=== PATIENT | male | born 1930 | race Caucasian/White ===

== ENCOUNTER 2018-02-21 18:44 | Inpatient (IN) | payer MEDICARE, OTHER ==
[~2018-02-21] VITALS: Ht 177.8 cm; Wt 53.9 kg
[2018-02-21 19:00] VITALS: BP 152/88
[2018-02-21] MEDS ORDERED: heparin 25,000 UNIT/250ml bag 250 ML IV SCH (19:06)
[2018-02-21] MEDS ORDERED: acetaminophen 325mg tablet PO PRN ×2 (19:10)
[2018-02-21] MEDS ORDERED: potassium Cl 40MEQ/NS 500ml 500 ML IV PRN ×2 (19:10)
[2018-02-21] MEDS ORDERED: potassium Cl 20 mEq SR tablet PO PRN (19:10)
[2018-02-21] MEDS ORDERED: morphine 2 MG/ML inj. syringe IV PRN (19:10)
[2018-02-21] MEDS ORDERED: morphine 4 MG/ML inj SYRINge IV PRN (19:10)
[2018-02-21] MEDS ORDERED: heparin 10,000 units/1 ML INJ IV PRN (19:10)
[2018-02-21 20:00] VITALS: BP 145/72
[2018-02-21 20:01] LABS: BASOPHILS # (AUTO) 0.1 X10'3 (0-0.2); BASOPHILS % (AUTO) 0.6 % (0-1); EOSINOPHILS # (AUTO) 0.2 X10'3 (0-0.9); EOSINOPHILS % (AUTO) 1.8 % (0-6); HEMATOCRIT 39.1 % (42.0-52.0); HEMOGLOBIN 12.9 g/dl (14.0-17.9); LYMPHOCYTES # (AUTO) 4.1 X10'3 (1.1-4.8); LYMPHOCYTES % (AUTO) 36.8 % (21-51); MEAN CORPUSCULAR HEMOGLOBIN 30.1 PG (27.0-31.0); MEAN CORPUSCULAR HGB CONC 33.1 % (33.0-36.5); MEAN CORPUSCULAR VOLUME 90.9 FL (78-98); MEAN PLATELET VOLUME 8.2 FL (7.4-10.4); MONOCYTES # (AUTO) 0.8 X10'3 (0-0.9); MONOCYTES % (AUTO) 7.2 % (2-12); NEUTROPHILS % (AUTO) 53.6 % (42-75); PLATELET COUNT 314 X10'3 (140-440); RED CELL DISTRIBUTION WIDTH 14.8 % (11.5-14.5); WHITE BLOOD COUNT 11.3 X10'3 (4.5-11.0)
[2018-02-21] MEDS: normal saline 1000ml 1,000 ML IV SCH (20:01)
[2018-02-21 21:00] VITALS: BP 96/55
[2018-02-21 21:05] LABS: ALANINE AMINOTRANSFERASE 16 U/L (12-78); ALBUMIN 3.4 G/DL (3.4-5.0); ALBUMIN/GLOBULIN RATIO 0.9 (1.1-1.5); ALKALINE PHOSPHATASE 103 IU/L (46-116); ANION GAP 13 (8-16); ASPARTATE AMINO TRANSFERASE 22 U/L (10-37); BILIRUBIN,TOTAL 0.7 MG/DL (0.1-1.0); BLOOD UREA NITROGEN 16 MG/DL (7-18); BUN/CREATININE RATIO 15.5 (5.4-32.0); CALCIUM 9.5 MG/DL (8.5-10.1); CHLORIDE 100 MMOL/L (99-107); CREATININE 1.03 MG/DL (0.60-1.10); GLUCOSE 102 MG/DL (70-104); POTASSIUM 3.6 MMOL/L (3.5-5.1); SODIUM 139 MMOL/L (135-145); TOTAL CARBON DIOXIDE 26.4 MMOL/L (24-32); TOTAL PROTEIN 7.3 G/DL (6.4-8.2); eGFR 68 ML/MIN
[2018-02-21] MEDS: docusate sod 100mg capsule PO SCH (21:15)
[2018-02-21] MEDS: famotidine 20mg tablet PO SCH (21:15)
[2018-02-21 22:00] VITALS: BP 119/54
[2018-02-21] MEDS: HYDROcodone/acetaminophen 5mg/325mg tablet PO PRN (23:25)
[2018-02-21] MEDS: ondansetron/PF 4mg/2ml inj IV PRN (23:25)
[2018-02-22] VITALS (25 sets, daily range): BP systolic 97–177; BP diastolic 58–100
[2018-02-22 00:43] LABS: CLARITY,URINE CLEAR (Clear); COLOR,URINE YELLOW (Yellow); GLUCOSE, URINE NEGATIVE (Neg); KETONES,URINE NEGATIVE (Neg); LEUKOCYTE ESTERASE ,URINE NEGATIVE (Neg); NITRITES, URINE NEGATIVE (Neg); OCCULT BLOOD,URINE NEGATIVE (Neg); PH,URINE 6.5 (4.8-8.0); PROTEIN,URINE NEGATIVE (Neg); UROBILINOGEN,URINE 0.2 E.U/dL (0.2-1.0)
[2018-02-22 00:48] LABS: UA COLLECTION TYPE URINAL
[2018-02-22 02:54] LABS: BASOPHILS # (AUTO) 0.1 X10'3 (0-0.2); BASOPHILS % (AUTO) 0.6 % (0-1); EOSINOPHILS # (AUTO) 0.1 X10'3 (0-0.9); EOSINOPHILS % (AUTO) 1.4 % (0-6); HEMATOCRIT 36.4 % (42.0-52.0); HEMOGLOBIN 11.9 g/dl (14.0-17.9); LYMPHOCYTES % (AUTO) 38.2 % (21-51); MEAN CORPUSCULAR HEMOGLOBIN 29.9 PG (27.0-31.0); MEAN CORPUSCULAR HGB CONC 32.7 % (33.0-36.5); MEAN CORPUSCULAR VOLUME 91.3 FL (78-98); MEAN PLATELET VOLUME 8.2 FL (7.4-10.4); MONOCYTES # (AUTO) 0.9 X10'3 (0-0.9); MONOCYTES % (AUTO) 8.3 % (2-12); NEUTROPHILS # (AUTO) 5.4 X10'3 (1.8-7.7); NEUTROPHILS % (AUTO) 51.5 % (42-75); PLATELET COUNT 310 X10'3 (140-440); RED BLOOD COUNT 3.99 X10'6 (4.70-6.10); RED CELL DISTRIBUTION WIDTH 15.1 % (11.5-14.5); WHITE BLOOD COUNT 10.6 X10'3 (4.5-11.0)
[2018-02-22 03:05] LABS: ALANINE AMINOTRANSFERASE 16 U/L (12-78); ALBUMIN 3.1 G/DL (3.4-5.0); ALBUMIN/GLOBULIN RATIO 0.9 (1.1-1.5); ALKALINE PHOSPHATASE 86 IU/L (46-116); ANION GAP 9 (8-16); ASPARTATE AMINO TRANSFERASE 21 U/L (10-37); BILIRUBIN,TOTAL 0.6 MG/DL (0.1-1.0); BLOOD UREA NITROGEN 13 MG/DL (7-18); BUN/CREATININE RATIO 12.9 (5.4-32.0); CALCIUM 9.1 MG/DL (8.5-10.1); CHLORIDE 104 MMOL/L (99-107); CREATININE 1.01 MG/DL (0.60-1.10); GLUCOSE 110 MG/DL (70-104); MAGNESIUM 1.8 MG/DL (1.5-2.4); PHOSPHORUS 2.9 MG/DL (2.3-4.5); POTASSIUM 3.7 MMOL/L (3.5-5.1); SODIUM 141 MMOL/L (135-145); TOTAL CARBON DIOXIDE 28.2 MMOL/L (24-32); TOTAL PROTEIN 6.4 G/DL (6.4-8.2); eGFR 70 ML/MIN
[2018-02-22] MEDS: HYDROcodone/acetaminophen 5mg/325mg tablet PO PRN (04:28)
[2018-02-22] MEDS: famotidine 20mg tablet PO SCH ×2 (08:00→20:14)
[2018-02-22] MEDS: docusate sod 100mg capsule PO SCH ×2 (08:00→20:14)
[2018-02-22] MEDS: normal saline 1000ml 1,000 ML IV SCH ×2 (08:23→22:12)
[2018-02-22] MEDS ORDERED: heparin 1,000 UNITS/NS 500ml 500 ML ONE ×2 (10:05→11:36)
[2018-02-22] MEDS ORDERED: heparin 1,000 UNITS/NS 500ml 500 ML ICATH ONE (10:05)
[2018-02-22] MEDS ORDERED: LIDOcaine 1%/PF 5ML 10 MG/ML VIAL ONE ×2 (10:05→12:50)
[2018-02-22] MEDS ORDERED: LIDOcaine 1%/PF 5ML 10 MG/ML VIAL SQ ONE (10:05)
[2018-02-22] MEDS ORDERED: midazolam 2 mg/2 ml injection ONE (10:05)
[2018-02-22] MEDS ORDERED: fentaNYL/PF 50MCG/1 ML 2ML syringe IV PRN (10:05)
[2018-02-22] MEDS ORDERED: iohexol 300mg/ml 100ml inj. ONE (10:05)
[2018-02-22] MEDS ORDERED: midazolam 2 mg/2 ml injection IV PRN (10:05)
[2018-02-22] MEDS ORDERED: fentaNYL/PF 50MCG/1 ML 2ML syringe ONE (10:06)
[2018-02-22] MEDS ORDERED: ondansetron/PF 4mg/2ml inj ONE (11:12)
[2018-02-22] MEDS ORDERED: tPA-cathflo 2mg/2ml IV flush 4 MG in normal saline 100ml IV soln 100 ML ICATH SCH (11:25)
[2018-02-22] MEDS ORDERED: DILT120T3 PO (12:04)
[2018-02-22] MEDS ORDERED: METO50TA16 PO (12:04)
[2018-02-22] MEDS ORDERED: ATOR-2 PO (12:04)
[2018-02-22] MEDS ORDERED: LYR75C PO (12:04)
[2018-02-22] MEDS ORDERED: CHLO50TA PO (12:04)
[2018-02-22] MEDS ORDERED: CILO100T PO (12:04)
[2018-02-22] MEDS ORDERED: CLOP75TA35 PO (12:04)
[2018-02-22] MEDS ORDERED: HYDROmorphone 1 mg/ml syringe ONE ×2 (13:46→17:20)
[2018-02-22] MEDS: HYDROmorphone inj. 0.5 MG/0.5 ML DISP.SYRIN IV PRN ×4 (14:00→23:06)
[2018-02-22 17:40] LABS: HEMATOCRIT 38.5 % (42.0-52.0); HEMOGLOBIN 12.6 g/dl (14.0-17.9); MEAN CORPUSCULAR HEMOGLOBIN 29.8 PG (27.0-31.0); MEAN CORPUSCULAR HGB CONC 32.6 % (33.0-36.5); MEAN CORPUSCULAR VOLUME 91.3 FL (78-98); PLATELET COUNT 305 X10'3 (140-440); RED BLOOD COUNT 4.22 X10'6 (4.70-6.10); RED CELL DISTRIBUTION WIDTH 15.3 % (11.5-14.5); WHITE BLOOD COUNT 9.8 X10'3 (4.5-11.0)
[2018-02-22] MEDS: heparin 1,000 UNITS/NS 500ml 500 ML IV SCH ×2 (19:40→22:14)
[2018-02-22] MEDS: diltiazem SR 60mg capsule (twice daily) PO SCH (20:13)
[2018-02-22] MEDS: atorvastatin 20mg tablet PO SCH (20:13)
[2018-02-22] MEDS: metoprolol tartrate 50mg tablet PO SCH (20:14)
[2018-02-22] MEDS ORDERED: diltiazem 5mg/ml 5ml inj. IV ONE (20:25)
[2018-02-22 23:53] LABS: HEMATOCRIT 34.7 % (42.0-52.0); HEMOGLOBIN 11.5 g/dl (14.0-17.9); MEAN CORPUSCULAR HGB CONC 33.1 % (33.0-36.5); MEAN CORPUSCULAR VOLUME 90.8 FL (78-98); MEAN PLATELET VOLUME 8.1 FL (7.4-10.4); PLATELET COUNT 294 X10'3 (140-440); RED BLOOD COUNT 3.82 X10'6 (4.70-6.10); RED CELL DISTRIBUTION WIDTH 15.6 % (11.5-14.5); WHITE BLOOD COUNT 9.1 X10'3 (4.5-11.0)
[2018-02-23] VITALS (23 sets, daily range): BP systolic 110–177; BP diastolic 55–109
[2018-02-23] MEDS: HYDROmorphone inj. 0.5 MG/0.5 ML DISP.SYRIN IV PRN ×6 (01:33→22:09)
[2018-02-23 06:03] LABS: BASOPHILS # (AUTO) 0.1 X10'3 (0-0.2); BASOPHILS % (AUTO) 0.6 % (0-1); EOSINOPHILS # (AUTO) 0.2 X10'3 (0-0.9); EOSINOPHILS % (AUTO) 1.7 % (0-6); HEMATOCRIT 34.3 % (42.0-52.0); HEMOGLOBIN 11.1 g/dl (14.0-17.9); LYMPHOCYTES # (AUTO) 3.4 X10'3 (1.1-4.8); LYMPHOCYTES % (AUTO) 37.7 % (21-51); MEAN CORPUSCULAR HEMOGLOBIN 29.7 PG (27.0-31.0); MEAN CORPUSCULAR HGB CONC 32.5 % (33.0-36.5); MEAN CORPUSCULAR VOLUME 91.4 FL (78-98); MEAN PLATELET VOLUME 8.1 FL (7.4-10.4); MONOCYTES # (AUTO) 0.7 X10'3 (0-0.9); MONOCYTES % (AUTO) 8.3 % (2-12); NEUTROPHILS # (AUTO) 4.6 X10'3 (1.8-7.7); NEUTROPHILS % (AUTO) 51.7 % (42-75); PLATELET COUNT 288 X10'3 (140-440); RED BLOOD COUNT 3.75 X10'6 (4.70-6.10); RED CELL DISTRIBUTION WIDTH 15.1 % (11.5-14.5); WHITE BLOOD COUNT 8.9 X10'3 (4.5-11.0)
[2018-02-23 06:16] LABS: ALANINE AMINOTRANSFERASE 14 U/L (12-78); ALBUMIN 2.6 G/DL (3.4-5.0); ALBUMIN/GLOBULIN RATIO 0.8 (1.1-1.5); ALKALINE PHOSPHATASE 87 IU/L (46-116); ANION GAP 9 (8-16); ASPARTATE AMINO TRANSFERASE 18 U/L (10-37); BILIRUBIN,TOTAL 0.7 MG/DL (0.1-1.0); BLOOD UREA NITROGEN 9 MG/DL (7-18); CALCIUM 8.6 MG/DL (8.5-10.1); CHLORIDE 104 MMOL/L (99-107); GLUCOSE 85 MG/DL (70-104); MAGNESIUM 1.5 MG/DL (1.5-2.4); PHOSPHORUS 3.3 MG/DL (2.3-4.5); POTASSIUM 3.8 MMOL/L (3.5-5.1); SODIUM 142 MMOL/L (135-145); TOTAL CARBON DIOXIDE 29.4 MMOL/L (24-32); TOTAL PROTEIN 5.9 G/DL (6.4-8.2); eGFR 80 ML/MIN
[2018-02-23 06:51] LABS: INR 1.1 INR
[2018-02-23] MEDS: cilostazol 50mg tablet PO SCH ×2 (07:30→08:20)
[2018-02-23] MEDS: chlorthalidone 25mg tablet PO SCH (08:00)
[2018-02-23] MEDS: clopidogrel 75mg tablet PO SCH (08:00)
[2018-02-23] MEDS: diltiazem SR 60mg capsule (twice daily) PO SCH ×4 (08:00→20:18)
[2018-02-23] MEDS: metoprolol tartrate 50mg tablet PO SCH ×4 (08:00→20:19)
[2018-02-23] MEDS: famotidine 20mg tablet PO SCH ×3 (08:00→20:18)
[2018-02-23] MEDS: docusate sod 100mg capsule PO SCH ×3 (08:00→20:18)
[2018-02-23] MEDS: pregabalin 75mg capsule PO SCH ×2 (08:00→08:20)
[2018-02-23] MEDS: normal saline 1000ml 1,000 ML IV SCH ×3 (11:07→23:11)
[2018-02-23] MEDS ORDERED: iohexol 300 MG/1 ML 50ml polymer ONE (12:07)
[2018-02-23 12:08] LABS: HEMATOCRIT 36.1 % (42.0-52.0); HEMOGLOBIN 11.6 g/dl (14.0-17.9); MEAN CORPUSCULAR HEMOGLOBIN 29.6 PG (27.0-31.0); MEAN CORPUSCULAR HGB CONC 32.2 % (33.0-36.5); MEAN CORPUSCULAR VOLUME 91.9 FL (78-98); MEAN PLATELET VOLUME 7.8 FL (7.4-10.4); PLATELET COUNT 298 X10'3 (140-440); RED BLOOD COUNT 3.93 X10'6 (4.70-6.10); RED CELL DISTRIBUTION WIDTH 15.2 % (11.5-14.5); WHITE BLOOD COUNT 9.1 X10'3 (4.5-11.0)
[2018-02-23] MEDS ORDERED: LIDOcaine 1%/PF 5ML 10 MG/ML VIAL ONE (12:29)
[2018-02-23] MEDS ORDERED: midazolam 2 mg/2 ml injection ONE (12:30)
[2018-02-23] MEDS ORDERED: heparin 1,000 UNITS/NS 500ml 500 ML ONE (12:30)
[2018-02-23] MEDS ORDERED: iohexol 300mg/ml 100ml inj. ONE (12:30)
[2018-02-23] MEDS ORDERED: fentaNYL/PF 50MCG/1 ML 2ML syringe ONE ×2 (12:30→12:57)
[2018-02-23 17:07] LABS: HEMOGLOBIN 12.3 g/dl (14.0-17.9); MEAN CORPUSCULAR HEMOGLOBIN 29.8 PG (27.0-31.0); MEAN CORPUSCULAR HGB CONC 32.5 % (33.0-36.5); MEAN CORPUSCULAR VOLUME 91.8 FL (78-98); MEAN PLATELET VOLUME 7.6 FL (7.4-10.4); PLATELET COUNT 308 X10'3 (140-440); RED BLOOD COUNT 4.14 X10'6 (4.70-6.10); RED CELL DISTRIBUTION WIDTH 15.2 % (11.5-14.5); WHITE BLOOD COUNT 9.6 X10'3 (4.5-11.0)
[2018-02-23] MEDS: atorvastatin 20mg tablet PO SCH (20:19)
[2018-02-24] VITALS (15 sets, daily range): BP systolic 116–172; BP diastolic 49–91
[2018-02-24] MEDS: HYDROmorphone inj. 0.5 MG/0.5 ML DISP.SYRIN IV PRN ×2 (00:42→07:03)
[2018-02-24] MEDS ORDERED: HYDROmorphone inj. 0.5 MG/0.5 ML DISP.SYRIN IV ONE (02:05)
[2018-02-24 07:03] LABS: BASOPHILS % (AUTO) 0.4 % (0-1); EOSINOPHILS # (AUTO) 0.1 X10'3 (0-0.9); HEMATOCRIT 37.6 % (42.0-52.0); HEMOGLOBIN 12.4 g/dl (14.0-17.9); LYMPHOCYTES # (AUTO) 2.9 X10'3 (1.1-4.8); LYMPHOCYTES % (AUTO) 24.7 % (21-51); MEAN CORPUSCULAR HEMOGLOBIN 30.1 PG (27.0-31.0); MEAN CORPUSCULAR HGB CONC 33.1 % (33.0-36.5); MEAN CORPUSCULAR VOLUME 91.1 FL (78-98); MEAN PLATELET VOLUME 8.3 FL (7.4-10.4); MONOCYTES % (AUTO) 8.5 % (2-12); NEUTROPHILS # (AUTO) 7.8 X10'3 (1.8-7.7); NEUTROPHILS % (AUTO) 65.4 % (42-75); PLATELET COUNT 298 X10'3 (140-440); RED BLOOD COUNT 4.12 X10'6 (4.70-6.10); RED CELL DISTRIBUTION WIDTH 15.2 % (11.5-14.5); WHITE BLOOD COUNT 11.9 X10'3 (4.5-11.0)
[2018-02-24 07:14] LABS: ALANINE AMINOTRANSFERASE 15 U/L (12-78); ALBUMIN 2.8 G/DL (3.4-5.0); ALBUMIN/GLOBULIN RATIO 0.8 (1.1-1.5); ALKALINE PHOSPHATASE 86 IU/L (46-116); ANION GAP 12 (8-16); ASPARTATE AMINO TRANSFERASE 25 U/L (10-37); BILIRUBIN,TOTAL 1.1 MG/DL (0.1-1.0); BLOOD UREA NITROGEN 10 MG/DL (7-18); BUN/CREATININE RATIO 12.2 (5.4-32.0); CALCIUM 8.9 MG/DL (8.5-10.1); CHLORIDE 101 MMOL/L (99-107); CREATININE 0.82 MG/DL (0.60-1.10); GLUCOSE 71 MG/DL (70-104); MAGNESIUM 1.2 MG/DL (1.5-2.4); PHOSPHORUS 2.9 MG/DL (2.3-4.5); POTASSIUM 3.6 MMOL/L (3.5-5.1); SODIUM 140 MMOL/L (135-145); TOTAL CARBON DIOXIDE 27.5 MMOL/L (24-32); TOTAL PROTEIN 6.5 G/DL (6.4-8.2); eGFR 89 ML/MIN
[2018-02-24] MEDS ORDERED: magnesium 2GM in 50ml NS 50 ML IV PRN (07:25)
[2018-02-24] MEDS ORDERED: magnesium 4gm in 100ml NS 100 ML IV PRN (07:25)
[2018-02-24] MEDS: clopidogrel 75mg tablet PO SCH (08:06)
[2018-02-24] MEDS: magnesium Cl slow-release 64mg tablet PO PRN ×2 (08:06→19:54)
[2018-02-24] MEDS: cilostazol 50mg tablet PO SCH (08:06)
[2018-02-24] MEDS: famotidine 20mg tablet PO SCH ×2 (08:06→19:41)
[2018-02-24] MEDS: chlorthalidone 25mg tablet PO SCH (08:06)
[2018-02-24] MEDS: diltiazem SR 60mg capsule (twice daily) PO SCH (08:06)
[2018-02-24] MEDS: pregabalin 75mg capsule PO SCH (08:07)
[2018-02-24] MEDS: metoprolol tartrate 50mg tablet PO SCH ×2 (08:07→19:41)
[2018-02-24] MEDS: docusate sod 100mg capsule PO SCH ×2 (08:07→19:41)
[2018-02-24] MEDS: apixaban 5mg tablet PO SCH ×2 (09:48→19:41)
[2018-02-24] MEDS: Melatonin 3mg tablet PO PRN (19:41)
[2018-02-24] MEDS: diltiazem 30mg tablet PO SCH (19:48)
[2018-02-24] MEDS: atorvastatin 20mg tablet PO SCH (19:51)
[2018-02-25 03:00] VITALS: BP 102/46
[2018-02-25 03:28] LABS: BASOPHILS # (AUTO) 0.1 X10'3 (0-0.2); BASOPHILS % (AUTO) 0.7 % (0-1); EOSINOPHILS % (AUTO) 0 % (0-6); HEMATOCRIT 30.1 % (42.0-52.0); HEMOGLOBIN 9.8 g/dl (14.0-17.9); LYMPHOCYTES # (AUTO) 2.5 X10'3 (1.1-4.8); LYMPHOCYTES % (AUTO) 24.2 % (21-51); MEAN CORPUSCULAR HEMOGLOBIN 29.7 PG (27.0-31.0); MEAN CORPUSCULAR HGB CONC 32.7 % (33.0-36.5); MEAN CORPUSCULAR VOLUME 90.8 FL (78-98); MEAN PLATELET VOLUME 7.8 FL (7.4-10.4); MONOCYTES # (AUTO) 1.2 X10'3 (0-0.9); MONOCYTES % (AUTO) 11.3 % (2-12); NEUTROPHILS # (AUTO) 6.7 X10'3 (1.8-7.7); NEUTROPHILS % (AUTO) 63.8 % (42-75); PLATELET COUNT 241 X10'3 (140-440); RED BLOOD COUNT 3.31 X10'6 (4.70-6.10); RED CELL DISTRIBUTION WIDTH 15.2 % (11.5-14.5); WHITE BLOOD COUNT 10.4 X10'3 (4.5-11.0)
[2018-02-25 03:43] LABS: ALANINE AMINOTRANSFERASE 16 U/L (12-78); ALBUMIN 2.3 G/DL (3.4-5.0); ALBUMIN/GLOBULIN RATIO 0.7 (1.1-1.5); ALKALINE PHOSPHATASE 76 IU/L (46-116); ANION GAP 8 (8-16); ASPARTATE AMINO TRANSFERASE 25 U/L (10-37); BLOOD UREA NITROGEN 13 MG/DL (7-18); CALCIUM 8.5 MG/DL (8.5-10.1); CHLORIDE 101 MMOL/L (99-107); CREATININE 1.08 MG/DL (0.60-1.10); GLUCOSE 149 MG/DL (70-104); MAGNESIUM 1.3 MG/DL (1.5-2.4); PHOSPHORUS 2.8 MG/DL (2.3-4.5); POTASSIUM 3.2 MMOL/L (3.5-5.1); SODIUM 137 MMOL/L (135-145); TOTAL CARBON DIOXIDE 28.5 MMOL/L (24-32); TOTAL PROTEIN 5.4 G/DL (6.4-8.2); eGFR 65 ML/MIN
[2018-02-25] MEDS: potassium Cl 20 mEq SR tablet PO PRN ×3 (05:17→14:32)
[2018-02-25] MEDS: magnesium Cl slow-release 64mg tablet PO PRN ×2 (05:17→17:18)
[2018-02-25 06:00] VITALS: BP 98/58
[2018-02-25] MEDS: famotidine 20mg tablet PO SCH ×2 (07:26→19:31)
[2018-02-25] MEDS: metoprolol tartrate 50mg tablet PO SCH ×2 (07:26→19:31)
[2018-02-25] MEDS: diltiazem 30mg tablet PO SCH ×2 (07:26→19:31)
[2018-02-25] MEDS: pregabalin 75mg capsule PO SCH (07:26)
[2018-02-25] MEDS: docusate sod 100mg capsule PO SCH ×2 (07:26→18:47)
[2018-02-25] MEDS: cilostazol 50mg tablet PO SCH (07:26)
[2018-02-25] MEDS: chlorthalidone 25mg tablet PO SCH (07:28)
[2018-02-25] MEDS: clopidogrel 75mg tablet PO SCH (08:00)
[2018-02-25 08:11] LABS: HEMATOCRIT 32.6 % (42.0-52.0); HEMOGLOBIN 10.8 g/dl (14.0-17.9); MEAN CORPUSCULAR HEMOGLOBIN 29.7 PG (27.0-31.0); MEAN CORPUSCULAR VOLUME 90.1 FL (78-98); PLATELET COUNT 252 X10'3 (140-440); RED BLOOD COUNT 3.62 X10'6 (4.70-6.10); RED CELL DISTRIBUTION WIDTH 14.9 % (11.5-14.5); WHITE BLOOD COUNT 9.6 X10'3 (4.5-11.0)
[2018-02-25] MEDS: apixaban 5mg tablet PO SCH ×2 (08:37→19:31)
[2018-02-25 11:00] VITALS: BP 95/48
[2018-02-25 15:00] VITALS: BP 103/55
[2018-02-25 18:46] VITALS: BP 111/63
[2018-02-25] MEDS: atorvastatin 20mg tablet PO SCH (20:02)
[2018-02-25 23:00] VITALS: BP 101/58
[2018-02-26] VITALS (7 sets, daily range): BP systolic 106–135; BP diastolic 54–82
[2018-02-26 05:28] LABS: BASOPHILS % (AUTO) 0.5 % (0-1); EOSINOPHILS # (AUTO) 0.1 X10'3 (0-0.9); EOSINOPHILS % (AUTO) 1.3 % (0-6); HEMATOCRIT 30.1 % (42.0-52.0); HEMOGLOBIN 10.1 g/dl (14.0-17.9); LYMPHOCYTES # (AUTO) 3.1 X10'3 (1.1-4.8); LYMPHOCYTES % (AUTO) 31.3 % (21-51); MEAN CORPUSCULAR HEMOGLOBIN 30.5 PG (27.0-31.0); MEAN CORPUSCULAR HGB CONC 33.6 % (33.0-36.5); MEAN CORPUSCULAR VOLUME 90.7 FL (78-98); MEAN PLATELET VOLUME 8.2 FL (7.4-10.4); MONOCYTES # (AUTO) 1.2 X10'3 (0-0.9); NEUTROPHILS # (AUTO) 5.4 X10'3 (1.8-7.7); NEUTROPHILS % (AUTO) 54.9 % (42-75); PLATELET COUNT 260 X10'3 (140-440); RED BLOOD COUNT 3.32 X10'6 (4.70-6.10); RED CELL DISTRIBUTION WIDTH 15.1 % (11.5-14.5); WHITE BLOOD COUNT 9.8 X10'3 (4.5-11.0)
[2018-02-26 05:49] LABS: ALANINE AMINOTRANSFERASE 22 U/L (12-78); ALBUMIN 2.4 G/DL (3.4-5.0); ALBUMIN/GLOBULIN RATIO 0.7 (1.1-1.5); ALKALINE PHOSPHATASE 79 IU/L (46-116); ANION GAP 7 (8-16); ASPARTATE AMINO TRANSFERASE 32 U/L (10-37); BILIRUBIN,TOTAL 0.7 MG/DL (0.1-1.0); BLOOD UREA NITROGEN 15 MG/DL (7-18); BUN/CREATININE RATIO 14.2 (5.4-32.0); CALCIUM 8.6 MG/DL (8.5-10.1); CHLORIDE 103 MMOL/L (99-107); CREATININE 1.06 MG/DL (0.60-1.10); GLUCOSE 119 MG/DL (70-104); MAGNESIUM 1.5 MG/DL (1.5-2.4); PHOSPHORUS 2.5 MG/DL (2.3-4.5); POTASSIUM 3.2 MMOL/L (3.5-5.1); SODIUM 140 MMOL/L (135-145); TOTAL CARBON DIOXIDE 30.1 MMOL/L (24-32); TOTAL PROTEIN 5.8 G/DL (6.4-8.2); eGFR 66 ML/MIN
[2018-02-26] MEDS: cilostazol 50mg tablet PO SCH (07:15)
[2018-02-26] MEDS: apixaban 5mg tablet PO SCH ×2 (07:15→21:03)
[2018-02-26] MEDS: diltiazem 30mg tablet PO SCH ×2 (07:15→21:03)
[2018-02-26] MEDS: chlorthalidone 25mg tablet PO SCH (07:15)
[2018-02-26] MEDS: docusate sod 100mg capsule PO SCH ×2 (07:15→21:03)
[2018-02-26] MEDS: metoprolol tartrate 50mg tablet PO SCH ×2 (07:16→21:07)
[2018-02-26] MEDS: clopidogrel 75mg tablet PO SCH (07:16)
[2018-02-26] MEDS: famotidine 20mg tablet PO SCH ×2 (07:16→21:02)
[2018-02-26] MEDS: pregabalin 75mg capsule PO SCH (07:16)
[2018-02-26] MEDS: potassium Cl 20 mEq SR tablet PO PRN ×3 (07:17→15:53)
[2018-02-26] MEDS: HYDROcodone/acetaminophen 5mg/325mg tablet PO PRN (11:39)
[2018-02-26] MEDS ORDERED: OLANZapine 5mg rapidly disint. tablet PO ONE (16:45)
[2018-02-26] MEDS ORDERED: OLANZapine **IM** 10 mg inj. IM ONE (16:45)
[2018-02-26] MEDS ORDERED: HYDROmorphone 2mg/ml vial IV PRN (17:35)
[2018-02-26] MEDS ORDERED: HYDROmorphone 1 mg/ml syringe IV ONE (17:40)
[2018-02-26] MEDS: atorvastatin 20mg tablet PO SCH (21:03)
[2018-02-27 03:00] VITALS: BP 132/71
[2018-02-27 07:00] VITALS: BP 118/52
[2018-02-27 07:12] LABS: ALANINE AMINOTRANSFERASE 22 U/L (12-78); ALBUMIN 2.6 G/DL (3.4-5.0); ALBUMIN/GLOBULIN RATIO 0.7 (1.1-1.5); ALKALINE PHOSPHATASE 88 IU/L (46-116); ANION GAP 10 (8-16); ASPARTATE AMINO TRANSFERASE 32 U/L (10-37); BILIRUBIN,TOTAL 0.6 MG/DL (0.1-1.0); BLOOD UREA NITROGEN 12 MG/DL (7-18); BUN/CREATININE RATIO 12.9 (5.4-32.0); CALCIUM 8.6 MG/DL (8.5-10.1); CHLORIDE 102 MMOL/L (99-107); CREATININE 0.93 MG/DL (0.60-1.10); GLUCOSE 126 MG/DL (70-104); MAGNESIUM 1.6 MG/DL (1.5-2.4); PHOSPHORUS 3.1 MG/DL (2.3-4.5); SODIUM 137 MMOL/L (135-145); TOTAL CARBON DIOXIDE 25.1 MMOL/L (24-32); TOTAL PROTEIN 6.5 G/DL (6.4-8.2); eGFR 77 ML/MIN
[2018-02-27 07:19] LABS: POTASSIUM 3.4 MMOL/L (3.5-5.1)
[2018-02-27] MEDS: diltiazem 30mg tablet PO SCH ×2 (08:23→19:51)
[2018-02-27] MEDS: clopidogrel 75mg tablet PO SCH (08:24)
[2018-02-27] MEDS: metoprolol tartrate 50mg tablet PO SCH ×2 (08:24→19:52)
[2018-02-27] MEDS: famotidine 20mg tablet PO SCH ×2 (08:24→19:52)
[2018-02-27] MEDS: docusate sod 100mg capsule PO SCH ×2 (08:24→19:51)
[2018-02-27] MEDS: cilostazol 50mg tablet PO SCH (08:24)
[2018-02-27] MEDS: apixaban 5mg tablet PO SCH ×2 (08:24→19:51)
[2018-02-27] MEDS: chlorthalidone 25mg tablet PO SCH (08:24)
[2018-02-27] MEDS: pregabalin 75mg capsule PO SCH (08:24)
[2018-02-27] MEDS ORDERED: HYDROmorphone 1 mg/ml syringe ONE ×2 (09:58→15:01)
[2018-02-27] MEDS: potassium Cl 20 mEq SR tablet PO PRN ×2 (10:03→16:38)
[2018-02-27] MEDS: HYDROmorphone inj. 0.5 MG/0.5 ML DISP.SYRIN IV PRN (10:11)
[2018-02-27 11:00] VITALS: BP 92/53
[2018-02-27] MEDS: HYDROcodone/acetaminophen 5mg/325mg tablet PO PRN ×2 (13:12→19:51)
[2018-02-27 15:00] VITALS: BP 100/56
[2018-02-27 19:00] VITALS: BP 125/69
[2018-02-27] MEDS: atorvastatin 20mg tablet PO SCH (21:00)
[2018-02-27 23:00] VITALS: BP 124/105
[2018-02-28] VITALS (8 sets, daily range): BP systolic 95–147; BP diastolic 52–71
[2018-02-28 05:29] LABS: ALANINE AMINOTRANSFERASE 19 U/L (12-78); ALBUMIN 2.5 G/DL (3.4-5.0); ALBUMIN/GLOBULIN RATIO 0.7 (1.1-1.5); ALKALINE PHOSPHATASE 85 IU/L (46-116); ANION GAP 12 (8-16); ASPARTATE AMINO TRANSFERASE 25 U/L (10-37); BILIRUBIN,TOTAL 0.8 MG/DL (0.1-1.0); BLOOD UREA NITROGEN 15 MG/DL (7-18); CALCIUM 9.1 MG/DL (8.5-10.1); CHLORIDE 100 MMOL/L (99-107); CREATININE 1.07 MG/DL (0.60-1.10); GLUCOSE 106 MG/DL (70-104); MAGNESIUM 1.5 MG/DL (1.5-2.4); PHOSPHORUS 3.6 MG/DL (2.3-4.5); POTASSIUM 3.5 MMOL/L (3.5-5.1); SODIUM 140 MMOL/L (135-145); TOTAL CARBON DIOXIDE 27.9 MMOL/L (24-32); TOTAL PROTEIN 6.2 G/DL (6.4-8.2); eGFR 65 ML/MIN
[2018-02-28] MEDS: metoprolol tartrate 50mg tablet PO SCH ×2 (08:00→21:46)
[2018-02-28] MEDS: chlorthalidone 25mg tablet PO SCH (09:19)
[2018-02-28] MEDS: famotidine 20mg tablet PO SCH ×2 (09:19→21:44)
[2018-02-28] MEDS: cilostazol 50mg tablet PO SCH (09:19)
[2018-02-28] MEDS: apixaban 5mg tablet PO SCH ×2 (09:20→21:45)
[2018-02-28] MEDS: docusate sod 100mg capsule PO SCH ×2 (09:20→21:45)
[2018-02-28] MEDS: diltiazem 30mg tablet PO SCH ×2 (09:20→21:44)
[2018-02-28] MEDS: clopidogrel 75mg tablet PO SCH (09:20)
[2018-02-28] MEDS: pregabalin 75mg capsule PO SCH (09:22)
[2018-02-28] MEDS ORDERED: diltiazem 30mg tablet PO ONE (12:35)
[2018-02-28] MEDS ORDERED: amiodarone 150mg/dext, iso-os 100 ML IV ONE (15:50)
[2018-02-28] MEDS ORDERED: amiodarone/D5 360MG/200ML BAG 200 ML IV SCH (15:50)
[2018-02-28] MEDS ORDERED: diltiazem SR 60mg capsule (twice daily) PO SCH (20:00)
[2018-02-28] MEDS: atorvastatin 20mg tablet PO SCH (21:45)
[2018-02-28] MEDS: amiodarone/D5 360MG/200ML BAG 200 ML IV SCH (23:10)
[2018-03-01] VITALS (11 sets, daily range): BP systolic 102–141; BP diastolic 60–92
[2018-03-01] MEDS: Melatonin 3mg tablet PO PRN (00:49)
[2018-03-01] MEDS: HYDROcodone/acetaminophen 5mg/325mg tablet PO PRN ×2 (00:51→19:47)
[2018-03-01] MEDS: diltiazem 30mg tablet PO SCH ×4 (04:02→19:45)
[2018-03-01 06:21] LABS: ALANINE AMINOTRANSFERASE 25 U/L (12-78); ALBUMIN 2.6 G/DL (3.4-5.0); ALBUMIN/GLOBULIN RATIO 0.6 (1.1-1.5); ALKALINE PHOSPHATASE 88 IU/L (46-116); ANION GAP 11 (8-16); ASPARTATE AMINO TRANSFERASE 32 U/L (10-37); BILIRUBIN,TOTAL 0.6 MG/DL (0.1-1.0); BLOOD UREA NITROGEN 21 MG/DL (7-18); BUN/CREATININE RATIO 16.7 (5.4-32.0); CALCIUM 8.9 MG/DL (8.5-10.1); CHLORIDE 98 MMOL/L (99-107); CREATININE 1.26 MG/DL (0.60-1.10); GLUCOSE 128 MG/DL (70-104); MAGNESIUM 1.5 MG/DL (1.5-2.4); PHOSPHORUS 3.9 MG/DL (2.3-4.5); POTASSIUM 3.7 MMOL/L (3.5-5.1); SODIUM 137 MMOL/L (135-145); TOTAL PROTEIN 6.8 G/DL (6.4-8.2); eGFR 54 ML/MIN
[2018-03-01] MEDS: clopidogrel 75mg tablet PO SCH (07:42)
[2018-03-01] MEDS: apixaban 5mg tablet PO SCH ×2 (07:42→19:45)
[2018-03-01] MEDS: famotidine 20mg tablet PO SCH ×2 (07:43→19:45)
[2018-03-01] MEDS: pregabalin 75mg capsule PO SCH (07:43)
[2018-03-01] MEDS: metoprolol tartrate 50mg tablet PO SCH ×2 (07:43→19:46)
[2018-03-01] MEDS: docusate sod 100mg capsule PO SCH ×2 (07:43→19:45)
[2018-03-01] MEDS: chlorthalidone 25mg tablet PO SCH (07:44)
[2018-03-01] MEDS: cilostazol 50mg tablet PO SCH (07:44)
[2018-03-01] MEDS: amiodarone/D5 360MG/200ML BAG 200 ML IV SCH (11:13)
[2018-03-01] MEDS: ondansetron/PF 4mg/2ml inj IV PRN (16:12)
[2018-03-01] MEDS: amiodarone 200mg tablet PO SCH (19:44)
[2018-03-01] MEDS: atorvastatin 20mg tablet PO SCH (21:00)
[2018-03-02] VITALS (8 sets, daily range): BP systolic 96–152; BP diastolic 53–98
[2018-03-02] MEDS: diltiazem 30mg tablet PO SCH ×4 (02:00→20:04)
[2018-03-02] MEDS ORDERED: haloperidol lactate 5mg/ml inj IM ONE (02:50)
[2018-03-02 05:58] LABS: ALANINE AMINOTRANSFERASE 19 U/L (12-78); ALBUMIN 2.5 G/DL (3.4-5.0); ALBUMIN/GLOBULIN RATIO 0.7 (1.1-1.5); ALKALINE PHOSPHATASE 81 IU/L (46-116); ANION GAP 9 (8-16); ASPARTATE AMINO TRANSFERASE 27 U/L (10-37); BILIRUBIN,TOTAL 0.7 MG/DL (0.1-1.0); BLOOD UREA NITROGEN 22 MG/DL (7-18); BUN/CREATININE RATIO 17.6 (5.4-32.0); CALCIUM 8.8 MG/DL (8.5-10.1); CHLORIDE 98 MMOL/L (99-107); CREATININE 1.25 MG/DL (0.60-1.10); GLUCOSE 116 MG/DL (70-104); MAGNESIUM 1.5 MG/DL (1.5-2.4); PHOSPHORUS 3.1 MG/DL (2.3-4.5); POTASSIUM 3.2 MMOL/L (3.5-5.1); SODIUM 137 MMOL/L (135-145); TOTAL CARBON DIOXIDE 29.7 MMOL/L (24-32); TOTAL PROTEIN 6.3 G/DL (6.4-8.2); eGFR 55 ML/MIN
[2018-03-02] MEDS: chlorthalidone 25mg tablet PO SCH (08:43)
[2018-03-02] MEDS: famotidine 20mg tablet PO SCH ×2 (08:44→20:03)
[2018-03-02] MEDS: cilostazol 50mg tablet PO SCH (08:45)
[2018-03-02] MEDS: docusate sod 100mg capsule PO SCH ×2 (08:45→20:03)
[2018-03-02] MEDS: metoprolol tartrate 50mg tablet PO SCH ×2 (08:46→20:04)
[2018-03-02] MEDS: potassium Cl 20 mEq SR tablet PO PRN ×3 (08:48→16:53)
[2018-03-02] MEDS: amiodarone 200mg tablet PO SCH ×2 (08:48→20:03)
[2018-03-02] MEDS: apixaban 5mg tablet PO SCH ×2 (08:49→20:04)
[2018-03-02] MEDS: pregabalin 75mg capsule PO SCH (08:50)
[2018-03-02] MEDS: clopidogrel 75mg tablet PO SCH (08:51)
[2018-03-02] MEDS ORDERED: HYDROcodone/acetaminophen 10/325mg tab PO PRN (11:50)
[2018-03-02 12:24] LABS: CLARITY,URINE SLIGHTLY CLOUDY (Clear); COLOR,URINE YELLOW (Yellow); GLUCOSE, URINE NEGATIVE (Neg); KETONES,URINE NEGATIVE (Neg); LEUKOCYTE ESTERASE ,URINE NEGATIVE (Neg); NITRITES, URINE NEGATIVE (Neg); OCCULT BLOOD,URINE LARGE (Neg); PROTEIN,URINE TRACE mg/dl (Neg); UROBILINOGEN,URINE 0.2 E.U/dL (0.2-1.0)
[2018-03-02 12:28] LABS: UA COLLECTION TYPE FOLEY CATH
[2018-03-02 12:36] LABS: BACTERIA,URINE FEW /HPF (Neg); MUCUS STRANDS NONE SEEN /LPF (Neg); RBC,URINE TNTC /HPF (0-2); SQUAMOUS EPITHELIAL CELL,UR NONE SEEN /LPF (FEW); TRANSITIONAL EPI CELLS,URINE FEW /HPF; WBC,URINE 0-4 /HPF (0-4)
[2018-03-02] MEDS: atorvastatin 20mg tablet PO SCH (21:00)
[2018-03-03] MEDS: Melatonin 3mg tablet PO PRN (00:41)
[2018-03-03] MEDS: diltiazem 30mg tablet PO SCH ×4 (02:00→20:03)
[2018-03-03 03:00] VITALS: BP 92/42
[2018-03-03 06:00] VITALS: BP 127/67
[2018-03-03 06:51] LABS: ALANINE AMINOTRANSFERASE 25 U/L (12-78); ALBUMIN 2.6 G/DL (3.4-5.0); ALBUMIN/GLOBULIN RATIO 0.7 (1.1-1.5); ALKALINE PHOSPHATASE 79 IU/L (46-116); ANION GAP 8 (8-16); ASPARTATE AMINO TRANSFERASE 33 U/L (10-37); BILIRUBIN,TOTAL 0.7 MG/DL (0.1-1.0); BLOOD UREA NITROGEN 18 MG/DL (7-18); BUN/CREATININE RATIO 15.5 (5.4-32.0); CALCIUM 8.7 MG/DL (8.5-10.1); CHLORIDE 100 MMOL/L (99-107); CREATININE 1.16 MG/DL (0.60-1.10); GLUCOSE 119 MG/DL (70-104); MAGNESIUM 1.5 MG/DL (1.5-2.4); PHOSPHORUS 2.6 MG/DL (2.3-4.5); POTASSIUM 3.3 MMOL/L (3.5-5.1); SODIUM 138 MMOL/L (135-145); TOTAL CARBON DIOXIDE 30.3 MMOL/L (24-32); TOTAL PROTEIN 6.5 G/DL (6.4-8.2); eGFR 59 ML/MIN
[2018-03-03] MEDS: docusate sod 100mg capsule PO SCH ×2 (08:45→20:03)
[2018-03-03] MEDS: chlorthalidone 25mg tablet PO SCH (08:45)
[2018-03-03] MEDS: cilostazol 50mg tablet PO SCH (08:45)
[2018-03-03] MEDS: famotidine 20mg tablet PO SCH ×2 (08:45→20:02)
[2018-03-03] MEDS: metoprolol tartrate 50mg tablet PO SCH ×2 (08:46→20:03)
[2018-03-03] MEDS: clopidogrel 75mg tablet PO SCH (08:46)
[2018-03-03] MEDS: potassium Cl 20 mEq SR tablet PO PRN ×3 (08:47→17:31)
[2018-03-03] MEDS: pregabalin 75mg capsule PO SCH (08:47)
[2018-03-03] MEDS: apixaban 5mg tablet PO SCH ×2 (08:47→20:02)
[2018-03-03] MEDS: amiodarone 200mg tablet PO SCH ×2 (08:47→20:03)
[2018-03-03 11:00] VITALS: BP 104/62
[2018-03-03] MEDS ORDERED: magnesium 4gm in 100ml NS 100 ML IV PRN (13:45)
[2018-03-03] MEDS ORDERED: potassium Cl 40MEQ/NS 500ml 500 ML IV PRN ×2 (13:45)
[2018-03-03] MEDS ORDERED: magnesium Cl slow-release 64mg tablet PO PRN (13:45)
[2018-03-03] MEDS ORDERED: potassium Cl 20 mEq SR tablet PO PRN ×2 (13:45)
[2018-03-03 15:00] VITALS: BP 163/83
[2018-03-03 19:00] VITALS: BP 113/63
[2018-03-03] MEDS: atorvastatin 20mg tablet PO SCH (20:02)
[2018-03-03 23:00] VITALS: BP 114/66
[2018-03-04] MEDS: diltiazem 30mg tablet PO SCH ×4 (02:24→20:07)
[2018-03-04 03:00] VITALS: BP 125/69
[2018-03-04 05:23] LABS: ALANINE AMINOTRANSFERASE 24 U/L (12-78); ALBUMIN 2.6 G/DL (3.4-5.0); ALBUMIN/GLOBULIN RATIO 0.7 (1.1-1.5); ALKALINE PHOSPHATASE 84 IU/L (46-116); ANION GAP 9 (8-16); ASPARTATE AMINO TRANSFERASE 28 U/L (10-37); BILIRUBIN,TOTAL 0.7 MG/DL (0.1-1.0); BLOOD UREA NITROGEN 17 MG/DL (7-18); BUN/CREATININE RATIO 14.7 (5.4-32.0); CALCIUM 8.9 MG/DL (8.5-10.1); CHLORIDE 100 MMOL/L (99-107); CREATININE 1.16 MG/DL (0.60-1.10); GLUCOSE 117 MG/DL (70-104); MAGNESIUM 1.5 MG/DL (1.5-2.4); PHOSPHORUS 2.7 MG/DL (2.3-4.5); POTASSIUM 3.3 MMOL/L (3.5-5.1); SODIUM 138 MMOL/L (135-145); TOTAL CARBON DIOXIDE 28.7 MMOL/L (24-32); TOTAL PROTEIN 6.5 G/DL (6.4-8.2); eGFR 59 ML/MIN
[2018-03-04 06:00] VITALS: BP 121/74
[2018-03-04] MEDS: cilostazol 50mg tablet PO SCH (10:40)
[2018-03-04] MEDS: chlorthalidone 25mg tablet PO SCH (10:41)
[2018-03-04] MEDS: apixaban 5mg tablet PO SCH ×2 (10:41→20:07)
[2018-03-04] MEDS: famotidine 20mg tablet PO SCH ×2 (10:41→20:08)
[2018-03-04] MEDS: potassium Cl 20 mEq SR tablet PO PRN ×2 (10:42→14:43)
[2018-03-04] MEDS: clopidogrel 75mg tablet PO SCH (10:42)
[2018-03-04] MEDS: amiodarone 200mg tablet PO SCH ×2 (10:43→20:08)
[2018-03-04] MEDS: docusate sod 100mg capsule PO SCH ×2 (10:44→20:07)
[2018-03-04] MEDS: pregabalin 75mg capsule PO SCH (10:44)
[2018-03-04] MEDS: metoprolol tartrate 50mg tablet PO SCH ×2 (10:45→20:08)
[2018-03-04 11:00] VITALS: BP 116/67
[2018-03-04] MEDS ORDERED: LIDOcaine 2% 10ml TOPICAL JELLY (Urojet) MM PRN (13:10)
[2018-03-04] MEDS ORDERED: HYDROcodone/acetaminophen 10/325mg tab PO PRN (13:10)
[2018-03-04 15:00] VITALS: BP 128/64
[2018-03-04 19:00] VITALS: BP 105/62
[2018-03-04] MEDS: atorvastatin 20mg tablet PO SCH (20:08)
[2018-03-04 23:00] VITALS: BP 100/59
[2018-03-05] MEDS: diltiazem 30mg tablet PO SCH ×4 (02:50→20:26)
[2018-03-05 03:00] VITALS: BP 107/64
[2018-03-05 06:48] LABS: ALANINE AMINOTRANSFERASE 19 U/L (12-78); ALBUMIN 2.7 G/DL (3.4-5.0); ALBUMIN/GLOBULIN RATIO 0.7 (1.1-1.5); ALKALINE PHOSPHATASE 85 IU/L (46-116); ANION GAP 7 (8-16); ASPARTATE AMINO TRANSFERASE 23 U/L (10-37); BILIRUBIN,TOTAL 0.7 MG/DL (0.1-1.0); BLOOD UREA NITROGEN 20 MG/DL (7-18); BUN/CREATININE RATIO 17.7 (5.4-32.0); CALCIUM 9.5 MG/DL (8.5-10.1); CHLORIDE 101 MMOL/L (99-107); CREATININE 1.13 MG/DL (0.60-1.10); GLUCOSE 125 MG/DL (70-104); MAGNESIUM 1.7 MG/DL (1.5-2.4); PHOSPHORUS 3.1 MG/DL (2.3-4.5); POTASSIUM 3.6 MMOL/L (3.5-5.1); SODIUM 136 MMOL/L (135-145); TOTAL CARBON DIOXIDE 27.7 MMOL/L (24-32); TOTAL PROTEIN 6.7 G/DL (6.4-8.2); eGFR 61 ML/MIN
[2018-03-05 07:00] VITALS: BP 129/43
[2018-03-05] MEDS: pregabalin 75mg capsule PO SCH (09:25)
[2018-03-05] MEDS: chlorthalidone 25mg tablet PO SCH (09:25)
[2018-03-05] MEDS: amiodarone 200mg tablet PO SCH ×2 (09:25→20:25)
[2018-03-05] MEDS: metoprolol tartrate 50mg tablet PO SCH ×2 (09:26→20:26)
[2018-03-05] MEDS: apixaban 5mg tablet PO SCH ×2 (09:27→20:27)
[2018-03-05] MEDS: docusate sod 100mg capsule PO SCH ×2 (09:27→20:26)
[2018-03-05] MEDS: clopidogrel 75mg tablet PO SCH (09:27)
[2018-03-05] MEDS: famotidine 20mg tablet PO SCH ×2 (09:27→20:26)
[2018-03-05] MEDS: cilostazol 50mg tablet PO SCH (09:30)
[2018-03-05 11:00] VITALS: BP 100/47
[2018-03-05] MEDS ORDERED: APIX5TAB3 PO (13:05)
[2018-03-05 19:00] VITALS: BP 132/71
[2018-03-05] MEDS: atorvastatin 20mg tablet PO SCH (20:26)
[2018-03-05 23:00] VITALS: BP 98/63
[2018-03-06] MEDS: diltiazem 30mg tablet PO SCH ×2 (02:09→08:04)
[2018-03-06 03:00] VITALS: BP 105/61
[2018-03-06 07:00] VITALS: BP 122/77
[2018-03-06 07:03] LABS: ALANINE AMINOTRANSFERASE 20 U/L (12-78); ALBUMIN 2.8 G/DL (3.4-5.0); ALBUMIN/GLOBULIN RATIO 0.7 (1.1-1.5); ALKALINE PHOSPHATASE 85 IU/L (46-116); ANION GAP 11 (8-16); ASPARTATE AMINO TRANSFERASE 20 U/L (10-37); BILIRUBIN,TOTAL 0.8 MG/DL (0.1-1.0); BLOOD UREA NITROGEN 21 MG/DL (7-18); BUN/CREATININE RATIO 17.8 (5.4-32.0); CALCIUM 9.5 MG/DL (8.5-10.1); CHLORIDE 100 MMOL/L (99-107); CREATININE 1.18 MG/DL (0.60-1.10); GLUCOSE 106 MG/DL (70-104); MAGNESIUM 1.6 MG/DL (1.5-2.4); PHOSPHORUS 3.6 MG/DL (2.3-4.5); POTASSIUM 3.3 MMOL/L (3.5-5.1); SODIUM 139 MMOL/L (135-145); TOTAL CARBON DIOXIDE 28.5 MMOL/L (24-32); TOTAL PROTEIN 6.8 G/DL (6.4-8.2); eGFR 58 ML/MIN
[2018-03-06] MEDS: amiodarone 200mg tablet PO SCH (08:03)
[2018-03-06] MEDS: clopidogrel 75mg tablet PO SCH (08:03)
[2018-03-06] MEDS: apixaban 5mg tablet PO SCH (08:03)
[2018-03-06] MEDS: famotidine 20mg tablet PO SCH (08:03)
[2018-03-06 08:04] VITALS: BP_SYST 122
[2018-03-06] MEDS: potassium Cl 20 mEq SR tablet PO PRN (08:04)
[2018-03-06] MEDS: docusate sod 100mg capsule PO SCH (08:04)
[2018-03-06] MEDS: metoprolol tartrate 50mg tablet PO SCH (08:04)
[2018-03-06] MEDS: pregabalin 75mg capsule PO SCH (08:04)
[2018-03-06] MEDS: chlorthalidone 25mg tablet PO SCH (09:04)
[2018-03-06] MEDS: cilostazol 50mg tablet PO SCH (09:04)
== END 2018-03-06 10:00 | disposition home health service (06) | DRG 314 ==
LOC: CICU 2S 18:45 → SUR 3N 02-24 12:21 → PCU 3S 02-24 21:00 → MED 3N 03-05 14:05
PROVIDERS: ADMIT Internal Medicine Critical Care Medicine; ATTEND Internal Medicine Critical Care Medicine
PROC: 3E05317 Introduction of Other Thrombolytic into Peripheral Artery, Percutaneous Approach (ICD-10-PCS; principal; 2018-02-22)
PROC: B41G1ZZ Fluoroscopy of Left Lower Extremity Arteries using Low Osmolar Contrast (ICD-10-PCS; 2018-02-22)
PROC: B41C1ZZ Fluoroscopy of Pelvic Arteries using Low Osmolar Contrast (ICD-10-PCS; 2018-02-22)
DX: T82.868A Thrombosis due to vascular prosthetic devices, implants and grafts, initial encounter (principal); J96.90 Respiratory failure, unspecified, unspecified whether with hypoxia or hypercapnia; F05 Delirium due to known physiological condition; T83.83XA Hemorrhage due to genitourinary prosthetic devices, implants and grafts, initial encounter; Y83.2 Surgical operation with anastomosis, bypass or graft as the cause of abnormal reaction of the patient, or of later complication, without mention of misadventure at the time of the procedure; Z93.0 Tracheostomy status; I10 Essential (primary) hypertension; I25.10 Atherosclerotic heart disease of native coronary artery without angina pectoris; I73.9 Peripheral vascular disease, unspecified; R33.9 Retention of urine, unspecified; Y84.6 Urinary catheterization as the cause of abnormal reaction of the patient, or of later complication, without mention of misadventure at the time of the procedure; I48.2 Chronic atrial fibrillation; J38.00 Paralysis of vocal cords and larynx, unspecified; J44.9 Chronic obstructive pulmonary disease, unspecified; Z95.5 Presence of coronary angioplasty implant and graft; Z88.6 Allergy status to analgesic agent; Z79.01 Long term (current) use of anticoagulants; Z87.891 Personal history of nicotine dependence; Y92.89 Other specified places as the place of occurrence of the external cause
CPT/HCPCS: 36246; 36415; 37211; 37214; 70450; 75710; 75736; 80053; 81001; 81003; 82948; 83735; 84100; 84132; 85025; 85027; 85384; 85610; 85730; 87040; 87070; 93922; 93926; 94760; 97162; 97530; 99152; 99153; A4623; A6219; C1769; C1894; G0378; J0282; J1170; J1630; J1644; J2001; J2250; J2405; J2997; J3010; J3490; J7030; Q9967